=== PATIENT | male | born 1960 | race Caucasian/White ===

== ENCOUNTER → 2018-05-30 | Outpatient (CLI) | payer SELFPAY | LOC: COL.RAD 11:50 | DX: M47.816 Spondylosis without myelopathy or radiculopathy, lumbar region (principal); M51.16 Intervertebral disc disorders with radiculopathy, lumbar region; M99.73 Connective tissue and disc stenosis of intervertebral foramina of lumbar region ==

== ENCOUNTER → 2019-03-27 | Outpatient (CLI) | payer SELFPAY ==
[2019-03-27 09:49] LABS: HEMATOCRIT 37.3 % (42.0-52.0); HEMOGLOBIN 12.7 g/dl (13.5-18.0); MEAN CELL VOLUME 91 fl (80.0-100.0); MEAN CORPUSCULAR HEMOGLOBIN 31 pg (27.0-31.0); MEAN CORPUSCULAR HGB CONC 34 g/dl (33.0-37.0); MEAN PLATELET VOLUME 10.7 fl (7.4-10.4); PLATELET COUNT 197 K/mm3 (130-400); RED BLOOD COUNT 4.09 M/mm3 (4.20-5.60)
[2019-03-27 10:04] LABS: ALBUMIN 4.4 gm/dL (3.5-5.0); BILIRUBIN,TOTAL 0.6 mg/dL (0.0-1.0); CALCIUM 9.9 mg/dL (8.4-10.2); CREATININE, serum 1.22 (0.66-1.25); POTASSIUM 4.8 mmol/L (3.4-5.0); TOTAL PROTEIN 7.7 gm/dL (6.4-8.2)
[2019-03-27 10:21] LABS: CHOLESTEROL RISK RATIO 5.9
[2019-03-27 10:34] LABS: PSA-TOTAL 0.49 ng/mL (0-4)
== END ==
LOC: COL.LAB 09:19
PROVIDERS: Family Medicine
DX: Z00.00 Encounter for general adult medical examination without abnormal findings (principal); I10 Essential (primary) hypertension; E78.2 Mixed hyperlipidemia
CPT/HCPCS: G0103

== ENCOUNTER 2020-01-15 12:06 | Day surgery (SDC) | payer SELFPAY ==
[~2020-01-15] VITALS: Ht 190.5 cm; Wt 107.7 kg
[2020-07-17] VITALS (7 sets, daily range): BP systolic 122–134; BP diastolic 71–79; PULSE 44–60; TEMP 97.4–98.2
[2020-07-17] MEDS ORDERED: PRILOSEC 20MG20 MG PO (06:22)
[2020-07-17] MEDS ORDERED: COZAAR 25MG25 MG/TAB PO (06:23)
[2020-07-17] MEDS ORDERED: PROZAC40 MG PO (06:23)
[2020-07-17] MEDS ORDERED: TRICOR145 MG PO (06:24)
--- NOTE | 2020-07-17 08:35 | NUR ---
Patient returns to room 7 per cart from PACU and is awake and alert. Foot of cart elevated and ice on the left knee. Jose wrap dressing dry and intact. Left foot warm to touch and nailbeds pink. Denies pain or nausea. Juan hose on the right leg. IV fluids infusing and spouse in room.
--- NOTE | 2020-07-17 08:50 | NUR ---
Resting and talking with spouse.
--- NOTE | 2020-07-17 09:05 | NUR ---
Eating toast and sipping on coffee. Room air sats 97%. Continues to deny need for pain medication and denies nausea.
[2020-07-17] MEDS ORDERED: NORCO 325 MG-51 TAB PO (09:07)
[2020-07-17] MEDS ORDERED: ASPIRIN 32325 MG/TAB PO (09:08)
[2020-07-17] MEDS ORDERED: MOBIC15 MG PO (09:09)
[2020-07-17] MEDS ORDERED: COLACE 100100 MG/CAP PO (09:10)
[2020-07-17] MEDS ORDERED: ZOFRAN 4MG T4 MG/TAB PO (09:11)
--- NOTE | 2020-07-17 09:20 | NUR ---
Eating toast, drinking coffee, and drinking water.
--- NOTE | 2020-07-17 09:25 | NUR ---
Medicated with Percocet 5mg tablet for complaints of buring sensation from the left knee.
--- NOTE | 2020-07-17 09:35 | NUR ---
Tolerated snack and fluids. Left knee dressing dry.
--- NOTE | 2020-07-17 09:47 | NUR ---
Assisted up to the bathroom with use of cruthces. Gait steady and tolerates activity well. IV converted to INT. Returns to room and INT discontinued. States that the Percocet is helping.
--- NOTE | 2020-07-17 10:04 | NUR ---
Dismissal instructions given and voices understanding of these. Scripts for Zofran, Aspirin, Colace, and Mobic called to [facility] [employer]. Patient will be hand carrying [facility] script. Instructed to use ice bag, elevate, and to report and signs or symptoms of infection or questions. Follow up appointment made and provided date and time. Given P.T. script.
--- NOTE | 2020-07-17 10:07 | NUR ---
Patient dismissed to home driven by spouse and taken to the front door per wheelchair and assisted into vehicle by this RN with instructions in hand.
== END 2020-07-17 10:07 | disposition home or self-care (01) ==
LOC: SDCO
DX: M23.222 Derangement of posterior horn of medial meniscus due to old tear or injury, left knee (principal); M22.42 Chondromalacia patellae, left knee; K22.70 Barrett's esophagus without dysplasia; G47.33 Obstructive sleep apnea (adult) (pediatric); I10 Essential (primary) hypertension; F32.9 Major depressive disorder, single episode, unspecified; E78.00 Pure hypercholesterolemia, unspecified; Z79.899 Other long term (current) drug therapy; Z20.828 Contact with and (suspected) exposure to other viral communicable diseases
CPT/HCPCS: J0690; J1885; J2405; J2704; J3010

== ENCOUNTER 2020-08-15 07:43 | Day surgery (SDC) | payer SELFPAY ==
[~2020-08-15] VITALS: Ht 157.5 cm; Wt 107.0 kg
[~2020-08-15 07:43] MED LIST: ASPIRIN 32325 MG/TAB PO; COLACE 100100 MG/CAP PO; COZAAR 25MG25 MG/TAB PO; MOBIC15 MG PO; NORCO 325 MG-51 TAB PO; PRILOSEC 20MG20 MG PO; PROZAC40 MG PO; TRICOR145 MG PO; ZOFRAN 4MG T4 MG/TAB PO
[2020-08-15 08:58] VITALS: BP 122/79; PULSE 46; TEMP 97.3
[2020-08-15 09:45] VITALS: BP 124/79; PULSE 49; TEMP 97.2
--- NOTE | 2020-08-15 09:45 | NUR ---
Pt to GI bay 5 via cart from [employer]. Pt drowsy, but awake. Pt ambulates to recliner with stand by assistance. Warm blankets provided. VSS. in room. Muffin and juice given. Will continue to monitor. Call light within reach.
[2020-08-15 10:00] VITALS: BP 125/69; PULSE 52
--- NOTE | 2020-08-15 10:00 | NUR ---
Pt tolerating food and fluids without difficulties. Call light within reach.
[2020-08-15 10:15] VITALS: BP 125/69; PULSE 46
--- NOTE | 2020-08-15 10:15 | NUR ---
Pt visiting with . Denies needs. Call light within reach.
[2020-08-15 10:30] VITALS: BP 120/62; PULSE 98
--- NOTE | 2020-08-15 10:30 | NUR ---
Pt continues to rest. Denies needs. Call light within reach. Waiting for to post conference with pt and .
[2020-08-15 11:00] VITALS: BP 130/76; PULSE 50
--- NOTE | 2020-08-15 11:00 | NUR ---
Pt continues to rest. Denies needs. Call light within reach.
--- NOTE | 2020-08-15 11:19 | NUR ---
into speak with pt and . Discharge instructions reviewed. Pt voices understanding. IV site discontinued with all parts intact. Pt up to dress. Call light within reach.
--- NOTE | 2020-08-15 11:35 | NUR ---
Pt escorted to private car via wheel chair. Pt accompanied home by his .
== END 2020-08-15 11:36 | disposition home or self-care (01) ==
LOC: SDCO 07:43
DX: Z12.11 Encounter for screening for malignant neoplasm of colon (principal); D12.0 Benign neoplasm of cecum; K64.1 Second degree hemorrhoids; K64.4 Residual hemorrhoidal skin tags; K92.1 Melena; K21.9 Gastro-esophageal reflux disease without esophagitis; K22.70 Barrett's esophagus without dysplasia; Z79.82 Long term (current) use of aspirin; F32.9 Major depressive disorder, single episode, unspecified; E78.5 Hyperlipidemia, unspecified; G47.33 Obstructive sleep apnea (adult) (pediatric); Z20.828 Contact with and (suspected) exposure to other viral communicable diseases
CPT/HCPCS: J2704; J7030